=== PATIENT | male | born 1990 | race Caucasian/White ===

== ENCOUNTER 2020-08-02 18:33 | Outpatient (CLI) | payer BC ==
--- NOTE | 2020-08-02 19:03 | XRAY Report ---
PROCEDURE: Chest 2 View X-Ray INDICATIONS: CHEST TIGHTNESS TECHNIQUE: 2 view(s) of the chest. COMPARISON: None. FINDINGS: Surgical changes and devices: None. Lungs and pleura: No pleural effusions or pneumothorax. Lungs are clear. Mediastinum: Mediastinal contours are normal. Heart size is normal. Bones and chest wall: No suspicious bony abnormalities. Soft tissues appear unremarkable. IMPRESSION: No acute process. Reviewed by: Ag Montano MD on 08/02/2020 7:02 PM PDT Approved by: Ag Montano MD on 08/02/2020 7:02 PM PDT Station ID: [id number]
== END 2020-08-02 23:59 | disposition home or self-care (01) ==
LOC: DI.S 18:33
PROVIDERS: ATTEND Physician Assistant
DX: R07.89 Other chest pain (principal)